=== PATIENT | male | born 1970 | race Caucasian/White ===

== ENCOUNTER 2017-02-13 08:41 | Emergency (ER) | payer MEDICAID ==
[~2017-02-13] VITALS: Wt 80.0 kg
--- NOTE | 2017-02-13 09:56 | RADRPT ---
PROCEDURE: CT Brain without. CLINICAL INDICATION: Dizziness TECHNIQUE: A CT of the brain was performed on a multi-slice CT scanner utilizing axial sections fr om the skull base through the vertex without contrast. None available One or more of the followin g does reduction techniques were used: Automated exposure control; adjustment of the mA and/or kV a ccording to patient size; use of the aorta of reconstruction technique. Images were reviewed on a [employer] gh-resolution PACS workstation. The exam CTDI = 42.02 mGy. The exam DLP = 630.2 mGy-cm. COMPARISON: None available FINDINGS: There is moderate global atrophy, out of proportion to patient's age. There is particular volume lo ss in the left cerebellum. There is likely an arachnoid cyst in the left posterior fossa. The vent ricles and sulci are symmetric in size and morphology. There is no evidence of intracranial hemorrh age, mass effect, edema or midline shift. No abnormal intra-axial or extra-axial fluid collections are seen. The an/white matter differentiation is well preserved. The osseous structures and visualized sinuses are unremarkable. The mastoid air cells are clear. Th e surrounding soft tissue scalp and bony calvarium are intact and normal. IMPRESSION: 1. No CT evidence of acute intracranial pathology. 2. Moderate global atrophy with particular atrophy of the left cerebellum outer portion of patient' s age. RPTAT: KK .Nahid Leavitt MD, MD Date Time Electronically viewed and signed by .Nahid Leavitt MD, MD on 02/13/2017 09:56 .B/
[2017-02-13] MEDS ORDERED: ACETAMINOPHEN 500 MG TAB PO STA (10:11)
--- NOTE | 2017-02-13 10:16 | ERD ---
ER Documentation Chief Complaint Date/Time DATE: 02/13/17 TIME: 10:11 Chief Complaint NON TRAUMATIC HEADACHE FOR THE PAST YEAR NO TRAUMA. + ETOH, NO NEURO DEF HPI This 46-year-old male presents to the ER for evaluation of a headache. The patient states that he has had a headache for the past year. He does state that he drinks alcohol daily and did drink 2 beers this morning. He denies any trauma. He denies any blurred vision, fevers or neck pain associated with his headache. He came to the ER for evaluation. ROS All systems reviewed and are negative except as per history of present illness. Medications Home Meds No Active Prescriptions or Reported Meds Allergies Allergies: Coded Allergies: No Known Allergy (Unverified , 02/13/17) PMhx/Soc Medical and Surgical Hx: pt denies Medical Hx, pt denies Surgical Hx Hx Alcohol Use: Yes Hx Substance Use: No Hx Tobacco Use: No Smoking Status: Never smoker Physical Exam Vitals Vital Signs Date Time Temp Pulse Resp B/P Pulse Ox O2 Delivery O2 Flow Rate FiO2 02/13/17 08:49 98.5 72 20 178/111 98 Physical Exam Const: Disheveled appearance Head: Atraumatic Eyes: Normal Conjunctiva ENT: Normal External Ears, Nose and Mouth. Neck: Full range of motion..~ No meningismus. Resp: Clear to auscultation bilaterally Cardio: Regular rate and rhythm, no murmurs Abd: Soft, non tender, non distended. Normal bowel sounds Skin: No petechiae or rashes Back: No midline or flank tenderness Ext: No cyanosis, or edema Neur: Awake and alert Psych: Normal Mood and Affect Results 24 hrs Current Medications Medications (Trade) Dose Ordered Sig/Jason Route PRN Reason Start Time Stop Time Status Last Admin Dose Admin Clonidine (Catapres) 0.2 mg ONCE ONCE PO 02/13/17 09:00 02/13/17 09:03 DC Procedures/MDM CT brain without: 1. No CT evidence of acute intracranial pathology. 2. Moderate global atrophy with particular atrophy of the left cerebellum outer portion of patient's age. This 46-year-old male presents to the ER for evaluation of a headache. When I evaluated this patient the patient was neurologically intact. No focal neuro deficits. He was hypertensive. The patient underwent a CT of the brain which does not show any acute intracranial hemorrhage. The patient is alert oriented to person place and time at this time. He was given 0.2 of clonidine. The patient was also given 1 g of Tylenol will be discharged at this time with a prescription for Tylenol and hydrochlorthiazide. Departure Diagnosis: Primary Impression: Headache Additional Impression: Uncontrolled hypertension Condition: Stable MATT CHUN DO Feb 13, 2017 10:15
[2017-02-13] MEDS ORDERED: HYD25 PO (10:18)
[2017-02-13] MEDS ORDERED: ACET-2047 PO (10:18)
== END 2017-02-13 12:36 | disposition home or self-care (01) ==
LOC: E/R 08:41
DX: R51 Headache (principal); I10 Essential (primary) hypertension
CPT/HCPCS: 70450; Z7610

== ENCOUNTER 2017-02-16 07:00 | Emergency (ER) | payer MEDICAID ==
[~2017-02-16] VITALS: Wt 80.0 kg
[~2017-02-16 07:00] MED LIST: ACET-2047 PO; HYD25 PO
[2017-02-16 07:37] LABS: BASOPHIL # 0.1 10^3/ul (0.0-0.1); BASOPHILS % 1.4 % (0.0-2.0); EOSINOPHILS # 0.4 10^3/ul (0.0-0.5); EOSINOPHILS % 5.2 % (0.0-7.0); HEMATOCRIT 40.5 % (42.0-52.0); HEMOGLOBIN 13.8 g/dl (14.0-18.0); LYMPHOCYTES # 1.1 10^3/ul (0.8-2.9); LYMPHOCYTES % 15.4 % (15.0-51.0); MEAN CORPUSCULAR HEMOGLOBIN 31.2 pg (29.0-33.0); MEAN CORPUSCULAR HGB CONC 34.1 g/dl (32.0-37.0); MEAN CORPUSCULAR VOLUME 91.6 fl (82.0-101.0); MEAN PLATELET VOLUME 9.8 fl (7.4-10.4); MONOCYTE # 1.1 10^3/ul (0.3-0.9); MONOCYTES % 14.7 % (0.0-11.0); NEUTROPHILS % 62.9 % (39.0-77.0); PLATELET COUNT 196 10^3/UL (140-415); RED BLOOD COUNT 4.42 10^6/ul (4.70-6.10); RED CELL DISTRIBUTION WIDTH 13.1 % (11.5-14.5); WHITE BLOOD COUNT 7.4 10^3/ul (4.8-10.8)
[2017-02-16 08:02] LABS: ALANINE AMINOTRANSFERASE 294 IU/L (13-69); ALBUMIN 4.4 g/dl (3.3-4.9); ALBUMIN/GLOBULIN RATIO 1.15; ALKALINE PHOSPHATASE 116 IU/L (42-121); ANION GAP 22 (8-16); ASPARTATE AMINO TRANSFERASE 236 IU/L (15-46); BILIRUBIN,INDIRECT 0.7 mg/dl (0-1.1); BILIRUBIN,TOTAL 0.7 mg/dl (0.2-1.3); BLOOD UREA NITROGEN 17 mg/dl (7-20); CALCIUM 8.3 mg/dl (8.4-10.2); CARBON DIOXIDE 22 mmol/L (21-31); CHLORIDE 98 mmol/L (97-110); CREATININE 1.09 mg/dl (0.61-1.24); GLUCOSE 178 mg/dl (70-220); POTASSIUM 3.1 mmol/L (3.5-5.1); SODIUM 139 mmol/L (135-144); TOTAL PROTEIN 8.2 g/dl (6.1-8.1)
[2017-02-16 08:03] LABS: ACETAMINOPHEN < 10.0 ug/ml (10.0-30.0); ETHANOL < 10.0 mg/dl; SALICYLATE < 1.0 mg/dl (5.0-30.0)
--- NOTE | 2017-02-16 08:12 | ERD ---
ER Documentation Chief Complaint Date/Time DATE: 02/16/17 TIME: 08:07 Chief Complaint SENT FOR AGITATION AND POSSIBLE PSYCH EVAL HPI This is a 46-year-old male with a known history of psychiatric disorder, possible schizophrenia, however the patient states he is not sure of the medications he takes but does state that he has not taken his antipsychotic medication for over 4 days. His roommate stated this morning that the patient appeared very agitated, was speaking to himself and appeared to be also experiencing auditory hallucinations. The patient denied any suicidal or homicidal thoughts or ideations. He denied any illicit drug use or alcohol use. He has no chest pain or pressure. He denies a headache or changes in vision. He denies any hemoptysis hematemesis or melanotic stools. ROS All systems reviewed and are negative except as per history of present illness. Medications Home Meds Active Scripts Acetaminophen* (Acetaminophen*) 650 Mg Tablet, 650 MG PO Q6H Y for PAIN AND OR ELEVATED TEMP, #30 TAB Prov:MATT CHUN DO 02/13/17 Hydrochlorothiazide* (Hydrochlorothiazide*) 25 Mg Tab, 25 MG PO DAILY, #30 TAB Prov:MATT CHUN DO 02/13/17 Allergies Allergies: Coded Allergies: No Known Allergy (Unverified , 02/13/17) PMhx/Soc Medical and Surgical Hx: pt denies Medical Hx, pt denies Surgical Hx Hx Miscellaneous Medical Probl: Yes (PYSCH HX UNCLEAR) Hx Alcohol Use: Yes Hx Substance Use: No Hx Tobacco Use: No Smoking Status: Unknown if ever smoked Physical Exam Vitals Vital Signs Date Time Temp Pulse Resp B/P Pulse Ox O2 Delivery O2 Flow Rate FiO2 02/16/17 09:05 98.0 96 178/98 02/16/17 07:48 98.0 110 18 227/134 99 Physical Exam Constitutional:Well-developed. Well-nourished. HEENT:Normocephalic. Atraumatic.Pupils were equal round reactive to light. Moist mucous membranes.No tonsillar exudates. Funduscopy exam showed sharp optic disc bilaterally venous pulsations are present Neck: No nuchal rigidity. No lymphadenopathy. No posterior cervical spine tenderness or step-offs. Respiratory: Not using accessory muscles of respiration.Lungs were clear to auscultation bilaterally. No rhonchi. No rales. No wheezing. Cardiovascular: Regular rate regular rhythm.No murmurs. No rubs were appreciated.S1, S2 normal. Distal pulses are palpable 2+ bilaterally. GI: Abdomen was soft. Nontender. Non Distended. No pulsatile abdominal masses or bruits. No rebound. No guarding. Bowel sounds were present and normal. Muscle skeletal: Full range of motion of both the upper and lower extremities bilaterally.Normal muscle tone.No assymetrical calf tenderness or swelling. Skin: No petechia, no purpura. No lesions on the palms or the soles of the feet. No maculopapular rash. NEURO: Patient was alert, awake, orientated x3.No facial droop. Gait observed and normal with no ataxia.Speech had regular rate and rhythm. No focal neurological deficits. Patient denied any suicidal homicidal thoughts ideations. Patient was experiencing auditory hallucinations but would not state what the voices were telling him. He denied any tactile or visual hallucinations. Result Diagram: 02/16/17 0712 02/16/17 0712 Results 24 hrs Laboratory Tests Test 02/16/17 07:12 02/16/17 08:44 White Blood Count 7.410^3/ul Red Blood Count 4.4210^6/ul Hemoglobin 13.8g/dl Hematocrit 40.5% Mean Corpuscular Volume 91.6fl Mean Corpuscular Hemoglobin 31.2pg Mean Corpuscular Hemoglobin Concent 34.1g/dl Red Cell Distribution Width 13.1% Platelet Count 70464^3/UL Mean Platelet Volume 9.8fl Neutrophils % 62.9% Lymphocytes % 15.4% Monocytes % 14.7% Eosinophils % 5.2% Basophils % 1.4% Nucleated Red Blood Cells % 0.0/100WBC Neutrophils # (Manual) 4.610^3/ul Lymphocytes # 1.110^3/ul Monocytes # 1.110^3/ul Eosinophils # 0.410^3/ul Basophils # 0.110^3/ul Nucleated Red Blood Cells # 0.010^3/ul Prothrombin Time 12.2Sec Prothrombin Time Ratio 1.0 INR International Normalized Ratio 0.91 Activated Partial Thromboplast Time 26.8Sec Sodium Level 139mmol/L Potassium Level 3.1mmol/L Chloride Level 98mmol/L Carbon Dioxide Level 22mmol/L Anion Gap 22 Blood Urea Nitrogen 17mg/dl Creatinine 1.09mg/dl Glucose Level 178mg/dl Calcium Level 8.3mg/dl Total Bilirubin 0.7mg/dl Direct Bilirubin 0.00mg/dl Indirect Bilirubin 0.7mg/dl Aspartate Amino Transf (AST/SGOT) 236IU/L Alanine Aminotransferase (ALT/SGPT) 294IU/L Alkaline Phosphatase 116IU/L Total Protein 8.2g/dl Albumin 4.4g/dl Globulin 3.80g/dl Albumin/Globulin Ratio 1.15 Salicylates Level < 1.0mg/dl Acetaminophen Level < 10.0ug/ml Ethyl Alcohol Level < 10.0mg/dl Urine Color YELLOW Urine Clarity CLEAR Urine pH 6.0 Urine Specific [place] 1.010 Urine Ketones NEGATIVEmg/dL Urine Nitrite NEGATIVEmg/dL Urine Bilirubin NEGATIVEmg/dL Urine Urobilinogen NEGATIVEmg/dL Urine Leukocyte Esterase NEGATIVELeu/ul Urine Microscopic RBC 2/HPF Urine Microscopic WBC 0/HPF Urine Hemoglobin 2+mg/dL Urine Glucose NEGATIVEmg/dL Urine Total Protein 1+mg/dl Urine Opiates Screen Negative Urine Barbiturates Negative Urine Amphetamines Screen Negative Urine Benzodiazepines Screen Negative Urine Cocaine Screen Negative Urine Cannabinoids Negative Current Medications Medications (Trade) Dose Ordered Sig/Jason Route PRN Reason Start Time Stop Time Status Last Admin Dose Admin Clonidine (Catapres) 0.2 mg ONCE ONCE PO 02/16/17 08:30 02/16/17 08:31 DC 02/16/17 08:18 Procedures/MDM This patient presented to the emergency department with acute psychosis and my differential diagnosis included but was not limited to ruling out life threatening causes of acute psychosis such as Wernickes encephalopathy, hypoxia , hypoglycemia, hypertensive encephalopathy, intracerebral hemorrhage, meningitis, poisoning. After my evaluation and workup on the patient I was able to exclude medical and reversible causes of the patients psychosis. It was my clinical impression the patients symptoms were an exacerbation of his psychiatric disorder; therefore, the patient was medically cleared by myself at this time for psychiatric evaluation and possible transfer. The patient did not become severely agitated during medical assessment and the patient did not require restraints or chemical sedation. This patient also presented to the emergency department with severely elevated blood pressure. My differential diagnosis included but was not limited to conditions that could end-organ damage such as acute coronary syndrome, acute pulmonary edema, aortic dissection, subarachnoid hemorrhage, intracerebral hemorrhage, cerebral infarction, withdrawal syndromes from beta blockers, or states of catecholamine excess such as pheochromocytoma or drug intoxication. Ancillary lab work was obtained. There was no elevation in the BUN and creatinine to suggest acute renal failure. Electrolytes were normal. Cardiac enzyme was normal and the 12 lead EKG showed no acute ischemic changes or left ventricular hypertrophy. 12 Lead EKG tracing ordered and reviewed by myself showed: Sinus tachycardia of 110 bpm and no arrhythmia. VT interval normal. QRS duration normal. No ST segment elevation the patient has significant Q waves in the inferior lead III aVF. No ST segment depression. No changes consistent with acute ischemia. Given that the patient had an absence of cerebral, ocular, cardiac or renal damage the hypertensive urgency was treated with oral agents in the emergency room with improvement of the patient's blood pressure. Nursing staff approached me and indicated that the patient had eloped without completion of treatment Departure Diagnosis: Primary Impression: Acute psychosis Condition: SPENCER Berry Feb 16, 2017 08:12
[2017-02-16 08:14] LABS: INR 0.91; PARTIAL THROMBOPLASTIN TIME 26.8 Sec (25.0-35.0); PROTIME 12.2 Sec (12.2-14.2)
[2017-02-16 09:05] VITALS: BP 178/98; PULSE 96; TEMP 98
[2017-02-16 10:15] LABS: ADD UMIC YES; UR ASCORBIC ACID NEGATIVE (NEGATIVE); UR BILIRUBIN (Dip) NEGATIVE (NEGATIVE); UR BLOOD (Dip) 2+ mg/dL (NEGATIVE); UR CLARITY CLEAR (CLEAR); UR COLOR YELLOW (YELLOW); UR GLUCOSE (Dip) NEGATIVE (NEGATIVE); UR KETONES (Dip) NEGATIVE (NEGATIVE); UR LEUKOCYTE ESTERASE (Dip) NEGATIVE Leu/ul (NEGATIVE); UR NITRITE (Dip) NEGATIVE (NEGATIVE); UR RBC 2 /HPF (0-5); UR TOTAL PROTEIN (Dip) 1+ mg/dl (NEGATIVE); UR UROBILINOGEN (Dip) NEGATIVE (NEGATIVE)
[2017-02-16 10:18] LABS: BARBITURATES Negative (NEGATIVE); BENZODIAZEPINES Negative (NEGATIVE); CANNABINOIDS Negative (NEGATIVE); COCAINE Negative (NEGATIVE); OPIATES Negative (NEGATIVE)
== END 2017-02-16 10:37 | disposition left against medical advice (07) ==
LOC: E/R 07:00
DX: F29 Unspecified psychosis not due to a substance or known physiological condition (principal); R40.4 Transient alteration of awareness
CPT/HCPCS: 36415; 80053; 80306; 80307; 81001; 85025; 85610; 85730; 93005; Z7502; Z7610

== ENCOUNTER 2018-01-28 17:59 | Emergency (ER) | END 2018-01-28 22:53 | disposition home or self-care (01) ==

== ENCOUNTER 2018-01-30 20:17 | Emergency (ER) | END 2018-01-31 02:49 | disposition home or self-care (01) ==

== ENCOUNTER 2018-02-23 08:03 | Emergency (ER) | END 2018-02-23 10:30 | disposition home or self-care (01) ==

== ENCOUNTER 2018-04-22 05:46 | Emergency (ER) | END 2018-04-22 08:20 | disposition home or self-care (01) ==

== ENCOUNTER 2019-01-05 06:48 | Emergency (ER) | payer OTHER ==
[~2019-01-05] VITALS: Ht 172.7 cm; Wt 78.6 kg
[~2019-01-05 06:48] MED LIST changes: -ACET-2047 PO; +AMLO-147 PO; +ASPI-817 PO; +ATOR20TA65 PO; +ATOR40TA68 PO; +CHLO25TA18 PO; +CLOP75TA27 PO; +CLOP75TA28 PO; -HYD25 PO; +HYDR-4011 PO; +IBUP-1542 PO; +ONDA4TAB14 PO; +TYL500 PO
[2019-01-05 06:52] VITALS: Ht 172.7 cm; Wt 78.6 kg
[2019-01-05] MEDS ORDERED: morphine 4 MG/ML VIAL IV STA (07:45)
[2019-01-05] MEDS ORDERED: SOD CHLORIDE 0.9% 1,000 ML IV STA (07:45)
[2019-01-05] MEDS ORDERED: ASPIRIN 325 MG TAB PO STA (07:45)
[2019-01-05] MEDS ORDERED: ONDANSETRON 4 MG INJ IV STA (07:45)
--- NOTE | 2019-01-05 08:41 | ERD ---
ER Documentation Chief Complaint Chief Complaint chest pain , headache , dry mouth since morning HPI This is a 48-year-old Azeri speaking male that presents to the emergency department complaining of a bandlike headache and stabbing chest pain with palpitations that have been intermittent over the past 24 hours. Indicated he awoke this morning with a very dry mouth. Given that his symptoms have not improved he did come to the emergency department to be further evaluated. The patient has a past medical history of hypertension high cholesterol benazepril and amlodipine. He states the headache is not the worst headache of his life. He denies any neck pain and has had no fevers or shaking no chills. The patient indicates that he has not had any changes in medications no excessive caffeine use, or recent travel. The patient denies any shortness of breath at rest or exertion. He states that the chest pain is in the center of the chest is stabbing in nature and is worse when he moves his upper extremities. He denies any recent trauma or overuse of his upper extremities. ROS All systems reviewed and are negative except as per history of present illness. Medications Home Meds Active Scripts Ibuprofen* (Motrin*) 600 Mg Tab, 600 MG PO Q6H PRN for PAIN AND OR ELEVATED TEMP, #30 TAB Prov:MAYANK GARCIA DO 07/29/18 Acetaminophen* (Tylenol*) 500 Mg Tab, 500 MG PO Q4H PRN for MILD PAIN LEVEL 1-3, #30 TAB Prov:MAYANK GARCIA DO 07/29/18 Clopidogrel Bisulfate (Clopidogrel) 75 Mg Tablet, 75 MG PO DAILY, #30 TAB Prov:CATE ROSSI PA-C 02/23/18 Amlodipine Besylate* (Amlodipine Besylate*) 10 Mg Tablet, 10 MG PO DAILY, #30 TAB Prov:CATE ROSSI PA-C 18 Atorvastatin* (Atorvastatin*) 40 Mg Tablet, 20 MG PO QHS, #30 TAB Prov:CATE ROSSI PA-C 02/23/18 Chlorpromazine Hcl* (Chlorpromazine Hcl*) 25 Mg Tablet, 25 MG PO TID for hiccup for 7 Days, TAB Prov:MAYANK LOMBARDI MD 01/31/18 Ondansetron (Ondansetron Odt) 4 Mg Tab.rapdis, 4 MG PO Q6H PRN for NAUSEA AND/OR VOMITING, #20 TAB Prov:PRISCILLA PÉREZ MD 01/28/18 Aspirin* (Aspirin* EC) 81 Mg Tablet.dr, 81 MG PO DAILY, #30 Prov:LISA VALDES CLIENT FINANCE ANALYST 01/06/18 Atorvastatin Calcium (Atorvastatin Calcium) 20 Mg Tablet, 20 MG PO HS, #30 TAB Prov:LISA VALDES CLIENT FINANCE ANALYST 01/06/18 Clopidogrel Bisulfate (Clopidogrel) 75 Mg Tablet, 75 MG PO DAILY, #30 TAB Prov:LISA VALDES NP 01/06/18 Reported Medications Hydrocodone/Acetaminophen ([place] 5-325 Tablet) 1 Each Tablet, 1 EACH PO NEEDED PRN for PAIN LEVEL , TAB 01/28/18 Amlodipine Besylate* (Amlodipine Besylate*) 10 Mg Tablet, 10 MG PO DAILY, #30 TAB HOLD FOR SBP<110 OR HR<60 01/28/18 Allergies Allergies: Coded Allergies: No Known Allergy (Unverified , 01/28/18) PMhx/Soc History of Surgery: No Anesthesia Reaction: No Hx Neurological Disorder: Yes (STROKE) Hx Respiratory Disorders: No Hx Cardiac Disorders: Yes (HTN) Hx Psychiatric Problems: Yes (Anxiety) Hx Miscellaneous Medical Probl: No Hx Alcohol Use: No Hx Substance Use: No Hx Tobacco Use: No Physical Exam Vitals Vital Signs Date Temp Pulse Resp B/P (MAP) Pulse Ox O2 O2 Flow FiO2 Time Delivery Rate 01/05/19 98.2 67 18 124/82 99 06:52 (96) Physical Exam Constitutional:Well-developed. Well-nourished. HEENT:Normocephalic. Atraumatic.Pupils were equal round reactive to light. Dry mucous membranes. No tonsillar exudates. Funduscopy exam showed sharp optic disks and venous pulsations are present Neck: No nuchal rigidity. No lymphadenopathy. No posterior cervical spine tenderness or step-offs. Respiratory: Not using accessory muscles of respiration.Lungs were clear to auscultation bilaterally. No rhonchi. No rales. No wheezing. Cardiovascular: Regular rate regular rhythm.No murmurs. No rubs were appreciated.S1, S2 normal. Distal pulses are palpable 2+ bilaterally. Bilateral reproducible chest wall tenderness with no crepitus no ecchymosis no flail chest GI: Abdomen was soft. Nontender. Non Distended. No pulsatile abdominal masses or bruits. No rebound. No guarding. Bowel sounds were present and normal. Muscle skeletal: Full range of motion of both the upper and lower extremities bi laterally.Normal muscle tone.No assymetrical calf tenderness or swelling. Skin: No petechia, no purpura. No lesions on the palms or the soles of the feet. No maculopapular rash. NEURO: Patient was alert, awake, orientated x3.No facial droop. Gait observed and normal with no ataxia.Speech had regular rate and rhythm. No focal neurological deficits. Encephalitis which is Result Diagram: 01/05/19 0800 01/05/19 0800 Results 24 hrs Laboratory Tests Test 01/05/19 08:00 White Blood Count 7.1 10^3/ul Red Blood Count 4.68 10^6/ul Hemoglobin 13.7 g/dl Hematocrit 41.0 % Mean Corpuscular Volume 87.6 fl Mean Corpuscular Hemoglobin 29.3 pg Mean Corpuscular Hemoglobin Concent 33.4 g/dl Red Cell Distribution Width 12.7 % Platelet Count 302 10^3/UL Mean Platelet Volume 9.2 fl Immature Granulocytes % 0.300 % Neutrophils % 68.6 % Lymphocytes % 22.5 % Monocytes % 7.2 % Eosinophils % 0.8 % Basophils % 0.6 % Nucleated Red Blood Cells % 0.0 /100WBC Immature Granulocytes # 0.020 10^3/ul Neutrophils # 4.9 10^3/ul Lymphocytes # 1.6 10^3/ul Monocytes # 0.5 10^3/ul Eosinophils # 0.1 10^3/ul Basophils # 0.0 10^3/ul Nucleated Red Blood Cells # 0.0 10^3/ul Prothrombin Time 12.5 Sec Prothrombin Time Ratio 1.0 INR International Normalized Ratio 0.92 Activated Partial Thromboplast Time 31.0 Sec Sodium Level 142 mmol/L Potassium Level 3.8 mmol/L Chloride Level 106 mmol/L Carbon Dioxide Level 25 mmol/L Anion Gap 11 Blood Urea Nitrogen 15 mg/dl Creatinine 1.10 mg/dl Est Glomerular Filtrat Rate mL/min > 60 mL/min Glucose Level 111 mg/dl Calcium Level 9.6 mg/dl Total Bilirubin 1.1 mg/dl Direct Bilirubin 0.00 mg/dl Indirect Bilirubin 1.1 mg/dl Aspartate Amino Transf (AST/SGOT) 30 IU/L Alanine Aminotransferase (ALT/SGPT) 35 IU/L Alkaline Phosphatase 75 IU/L Creatine Kinase 257 IU/L Creatine Kinase Index 0.8 Creatinine Kinase MB (Mass) 1.98 ng/ml Troponin I < 0.012 ng/ml B-Type Natriuretic Peptide 100 PG/ML Total Protein 8.1 g/dl Albumin 4.5 g/dl Globulin 3.60 g/dl Albumin/Globulin Ratio 1.25 Current Medications Medications Dose Sig/Jason Start Time Status Last (Trade) Ordered Route PRN Stop Time Admin Dose Reason Admin Sodium 1,000 ml @ Q1H STAT 01/05/19 DC 01/05/19 Chloride 1,000 mls/hr IV 07:45 08:42 01/05/19 08:44 Aspirin 325 mg ONCE STAT 01/05/19 DC 01/05/19 (Aspirin) PO 07:45 08:42 01/05/19 07:47 Ondansetron 4 mg ONCE STAT 01/05/19 DC 01/05/19 HCl (Zofran IV 07:45 08:42 Inj) 01/05/19 07:47 Morphine 4 mg ONCE STAT 01/05/19 DC 01/05/19 Sulfate IV 07:45 08:42 (morphine) 01/05/19 07:47 Procedures/MDM The patient presented to the emergency department complaining of chest pain. My clinical evaluation and workup was to distinguish minor causes of chest pain from acute life threatening cardiopulmonary causes such as myocardial infarction, pulmonary embolism, aortic dissection, esophageal rupture, cardiac tamponade, The patient was placed on a registered nurse cardiac telemetry, continuous pulse oximetry and IV access established by nursing staff. The patient was given aspirin with no improvement of his symptoms. Therefore the patient was given intravenous morphine and Zofran The patients chest pain was reproduced by palpation and horizontal flexion of the arms. It was my clinical impression that the pain was a result of inflammation of the skin and subcutaneous structures of the chest wall versus myocardial ischemia. I felt the patient had low-risk chest pain and could therefore be safely discharged with close follow-up. 12 Lead EKG tracing ordered and reviewed by myself showed: Normal sinus rhythm of 69 bpm and no arrhythmia. IA interval normal. QRS duration normal. No ST segment elevation No ST segment depression. No changes consistent with acute ischemia. The patient has complained of a bandlike headache. He had no physical exam findings to suggest meningitis or subarachnoid hemorrhage. CT scan of the head showed no intracerebral hemorrhage mass-effect or midline shift. The CT scan reviewed by the radiologist indicate the followin. No significant change. 2. Old right MCA infarct. 3. Moderate generalized cerebral and cerebellar volume loss asymmetrically worse involving the left posterior fossa. 4. No evidence of intracranial masses hemorrhages or midline shift. I did feel this was more likely result of a tension headache. The patient headache improved with the above analgesic medication as well as Toradol. The patient was discharged home in fair condition. They were instructed to return to the emergency department at any time if there was any worsening of their condition. The patient stated they would follow up with their PCP in the next 24-48 hours to initiate a suitable medication regimen under the care of their PCP as well as to allow their PCP to monitor any drug reactions. The patient was discharged home with prescriptions after they gave informed consent to the new medication. They were also fully informed by myself on the adverse effects and adverse drug interactions in order to provide adequate safeguards to prevent possible adverse reactions to medications. Departure Diagnosis: Primary Impression: Tension headache Additional Impression: Costochondritis, acute Condition: Fair SPENCER WEINSTEIN MD Jan 05, 2019 08:41
[2019-01-05] MEDS ORDERED: KETOROLAC 30 MG INJ IV STA (09:39)
[2019-01-05 10:42] VITALS: BP 115/65; PULSE 62; RESP 18
[2019-01-05] MEDS ORDERED: IBUP800T48 PO (11:01)
== END 2019-01-05 11:31 | disposition home or self-care (01) ==
LOC: E/R 06:48
DX: G44.209 Tension-type headache, unspecified, not intractable (principal); M94.0 Chondrocostal junction syndrome [Tietze]; I10 Essential (primary) hypertension; R07.9 Chest pain, unspecified; Z79.82 Long term (current) use of aspirin
CPT/HCPCS: 70450; 71045; 80053; 82550; 82553; 83880; 84484; 85025; 85610; 85730; 93005; 96374; 96375; J1885; J2270; J2405; J7030; Z7502; Z7610